=== PATIENT | male | born 1985 | race Caucasian/White ===

== ENCOUNTER 2017-12-20 11:25 | Inpatient (IN) ==
[2017-12-20] MEDS ORDERED: Ondansetron 4 MG/2 ML VIAL IVP ONE (12:02)
[2017-12-20] MEDS ORDERED: *HR* HYDROmorphone (PF) 1 MG/ML SYRINGE IVP ONE ×2 (12:02→16:31)
[2017-12-20] MEDS ORDERED: 0.9 % Sodium Chloride 1,000 ML IVC ONE (12:02)
[2017-12-20 12:10] LABS: Basophils % 0.4 %; Eosinophils % 0.4 %; Hemoglobin 15.5 g/dL (12.9-16.9); Immature Granulocytes % 0.4 % (0-4); Lymphocytes # 0.9 K/mcL (0.6-4.6); Lymphocytes % 10.9 %; Mean Corpuscular Hemoglobin 26.9 pg (28.0-33.3); Mean Corpuscular Volume 81.6 fL (83.0-100.0); Mean Platelet Volume 8.8 fL (9.4-12.4); Monocytes # 0.7 K/mcL (0.0-1.3); Monocytes % 7.6 %; Neutrophils # 6.9 K/mcL (1.6-8.9); Platelet Count 304 K/mcL (140-400); Red Blood Count 5.76 M/mcL (4.19-5.50); Red Cell Distribution Width 13.4 % (11.5-14.5); Segmented Neutrophils % 80.3 %
[2017-12-20 12:29] LABS: Alanine Aminotransferase 37 Units/L (7-52); Albumin 4.9 g/dL (3.5-5.7); Albumin/Globulin Ratio 1.5 (1.1-2.2); Alkaline Phosphatase 73 Units/L (34-104); Aspartate Amino Transferase 23 Units/L (13-39); BUN/Creatinine Ratio 13 (6-26); Bilirubin,Direct 0.1 mg/dL (0.0-0.2); Bilirubin,Indirect 0.7 mg/dL (0.0-1.2); Bilirubin,Total 0.8 mg/dL (0.3-1.0); Blood Urea Nitrogen 11 mg/dL (6-20); Calcium 9.9 mg/dL (8.6-10.3); Carbon Dioxide 29 mEq/L (23-29); Chloride 100 mEq/L (98-107); Globulin 3.2 g/dL (2.4-3.5); Glucose 126 mg/dL (70-105); Lipase 12 Units/L (11-82); Osmolality,Calculated 287 (280-300); Potassium 3.4 mEq/L (3.5-5.1); Sodium 138 mEq/L (136-145); Total Protein 8.1 g/dL (6.4-8.9); eGFR For Non-African Americans > 60 (> 60)
[2017-12-20 12:42] LABS: Bilirubin,Urine Small (Negative); Blood,Urine Negative (Negative); Clarity,Urine Clear (Clear); Color,Urine Dark Yellow (Yellow); Glucose,Urine (UA) Normal (Normal); Ketones,Urine Trace mg/dL (Negative); Leukocyte Esterase,Urine Negative (Negative); Nitrite,Urine Negative (Negative); Protein,Urine 100 mg/dL (Neg-Trace); Specific Gravity,Urine > 1.030 (1.010-1.025); Urobilinogen,Urine Normal (Normal)
[2017-12-20 12:46] LABS: Bacteria,Urine None Seen per hpf (None-Few); Hyaline Casts,Urine Few per lpf (None-Few); RBC,Urine 0-3 per hpf (0-3); Squamous Epithelial Cell,Urine Many per lpf (None-Few)
[2017-12-20] MEDS ORDERED: Isovue-370 500 ML INFUS..BTL PO ONE (14:22)
[2017-12-20] MEDS ORDERED: Lidocaine Viscous Oral Soln 15 ML SOLUTION MM ONE (15:32)
--- NOTE | 2017-12-20 16:26 | Emergency Department Note ---
Disposition Clinical Impression: Incarcerated hernia Disposition: Admitted As Inpatient Condition: Good Abdominal Pain HPI - General Chief Complaint: ED Abdominal Pain Stated Complaint: Abd pain Time Seen by Provider: 12/20/17 11:31 Source: patient Mode of arrival: ambulatory Limitations: no limitations Nursing Notes Reviewed: Yes Vital Signs Reviewed: Yes - History of Present Illness HPI Narrative: Patient presents to the emergency department today for evaluation of abdominal pain and hernia that he was going to have evaluated on by Dr. Rosario. Patient states he has had a hernia for 2 years. It has been out for 2 days causing increasing amounts of pain as well as 8 episodes of vomiting prior to arrival. The patient otherwise looks well. His attempted to be reduced and was unsuccessful. Patient will go on to further evaluation with CT scan imaging and blood work. Pain Scale: 1 - Related Data Home Medications Medication Instructions Recorded Confirmed Levothyroxine Sodium [Levoxyl] 88 mcg PO DAILY 12/20/17 12/20/17 Levothyroxine Sodium [Synthroid] 200 mcg PO DAILY 12/20/17 12/20/17 RX: Carvedilol [Coreg] 25 mg PO BID 12/20/17 12/20/17 RX: amLODIPine [Norvasc] 5 mg PO DAILY 12/20/17 12/20/17 hydroCHLOROthiazide 25 mg PO DAILY 12/20/17 12/20/17 [Hydrochlorothiazide] Allergies Allergy/AdvReac Type Severity Reaction Status Date / Time levofloxacin [From Levaquin] Allergy See Verified 12/20/17 11:36 Comments Penicillins [PCN] Allergy See Verified 12/20/17 11:36 Comments All systems ED: reviewed and negative except as stated. Review of Systems: As Per HPI Constitutional: Denies: fever, chills ENT ED: Denies: ear pain, congestion Cardiovascular: Denies: chest pain, palpitations, dyspnea on exertion Respiratory: Denies: cough, dyspnea, wheezes Gastrointestinal: Reports: abdominal pain, nausea, vomiting. Denies: diarrhea, constipation Genitourinary: Denies: urgency, dysuria Musculoskeletal: Denies: back pain, neck pain Integumentary: Denies: rash, abrasion Neurological: Denies: headache Abdominal Pain PMH - Past Medical History Medical history: Reports: hyperlipidemia, hypertension, thyroid disease, other Male Surgical History: Reports: orthopedic, other, thyroidectomy, Tonsillectomy Psychiatric history: Reports: no psych history - Social History Smoking status: Never smoker Alcohol use: Reports: occasionally Drug use: Reports: none Physical Exam General: Mild distress secondary to pain Head: Normocephalic Atraumatic Eyes: PERRL, EOMI ENT: Airway patent, no stridor Neck: supple, no meningismus Chest: Lungs clear to auscultation bilateral Cardiac: Regular rate and rhythm, no murmurs, rubs or gallops Abdomen: Patient has a ventral hernia that was unable to be reduced at bedside. Ice was applied without reduction. Fascial defects unable to be felt. The patient's underlying abdomen is soft and nontender to palpation without guarding or rebound. Musculoskeletal: Calves symmetric, nontender Skin: No rash, normal skin tone Neuro: Alert and Oriented to person, place, and time; No focal deficit, CN 2-12 symmetric and intact - General Limitations: no limitations General appearance: alert Course - Consultations Consultation #1: Discussed with Dr. Cortez. Requests oral contrast. Dr. Cortez at bedside after CT scan resulted. Patient will be admitted to his service. Vital Signs Temperature 98.0 F 12/20/17 11:34 Pulse Rate 94 12/20/17 11:34 Respiratory Rate 18 12/20/17 11:34 Blood Pressure 116/89 12/20/17 11:34 O2 Sat by Pulse Oximetry 93 12/20/17 11:34 Temperature 98.5 F 12/20/17 23:17 Pulse Rate 69 12/20/17 23:17 Respiratory Rate 18 12/20/17 23:17 Blood Pressure 141/82 12/20/17 23:17 O2 Sat by Pulse Oximetry 92 12/20/17 23:35 Oxygen Delivery Oxygen Delivery Room Air Abdominal Pain - Lab Data Result diagrams: 12/20/17 12:00 12/20/17 12:00 Lab Results 12/20/17 12/20/17 12/20/17 Range/Units 12:00 12:00 12:09 WBC 8.6 (4.3-11.1) K/mcL RBC 5.76 H (4.19-5.50) M/mcL Hgb 15.5 (12.9-16.9) g/dL Hct 47.0 (37.5-50.1) % MCV 81.6 L (83.0-100.0) fL MCH 26.9 L (28.0-33.3) pg MCHC 33.0 (31.6-35.5) g/dL RDW 13.4 (11.5-14.5) % Plt Count 304 (140-400) K/mcL MPV 8.8 L (9.4-12.4) fL Immature Gran % 0.4 (0-4) % Seg Neutrophils % 80.3 % Lymphocytes % 10.9 % Monocytes % 7.6 % Eosinophils % 0.4 % Basophils % 0.4 % Neutrophils # 6.9 (1.6-8.9) K/mcL Lymphocytes # 0.9 (0.6-4.6) K/mcL Monocytes # 0.7 (0.0-1.3) K/mcL Eosinophils # 0.0 (0.0-0.6) K/mcL Basophils # 0.0 (0.0-0.2) K/mcL Sodium 138 (136-145) mEq/L Potassium 3.4 L (3.5-5.1) mEq/L Chloride 100 (98-107) mEq/L Carbon Dioxide 29 (23-29) mEq/L BUN 11 (6-20) mg/dL Creatinine 0.85 (0.70-1.30) mg/dL Est GFR ( Amer) > 60 (> 60) Est GFR (Non-Af Amer) > 60 (> 60) BUN/Creatinine Ratio 13 (6-26) Glucose 126 H (70-105) mg/dL Calculated Osmolality 287 (280-300) Lactic Acid 1.0 (0.5-2.2) mmol/L Calcium 9.9 (8.6-10.3) mg/dL Total Bilirubin 0.8 (0.3-1.0) mg/dL Direct Bilirubin 0.1 (0.0-0.2) mg/dL Indirect Bilirubin 0.7 (0.0-1.2) mg/dL AST 23 (13-39) Units/L ALT 37 (7-52) Units/L Alkaline Phosphatase 73 (34-104) Units/L Serum Total Protein 8.1 (6.4-8.9) g/dL Albumin 4.9 (3.5-5.7) g/dL Globulin 3.2 (2.4-3.5) g/dL Albumin/Globulin Ratio 1.5 (1.1-2.2) Lipase 12 (11-82) Units/L Urine Color (Yellow) Urine Clarity (Clear) Urine pH (5.0-8.0) pH Units Ur Specific [place] (1.010-1.025) Urine Protein (Neg-Trace) mg/dL Urine Glucose (UA) (Normal) mg/dL Urine Ketones (Negative) mg/dL Urine Blood (Negative) Urine Nitrite (Negative) Urine Bilirubin (Negative) Urine Urobilinogen (Normal) mg/dL Ur Leukocyte Esterase (Negative) Urine Microscopic RBC (0-3) per hpf Urine Microscopic WBC (0-3) per hpf Ur Squamous Epith Cells (None-Few) per lpf Urine Bacteria (None-Few) per hpf Hyaline Casts (None-Few) per lpf Ur Culture Indicated? (NO) 12/20/17 Range/Units 12:34 WBC (4.3-11.1) K/mcL RBC (4.19-5.50) M/mcL Hgb (12.9-16.9) g/dL Hct (37.5-50.1) % MCV (83.0-100.0) fL MCH (28.0-33.3) pg MCHC (31.6-35.5) g/dL RDW (11.5-14.5) % Plt Count (140-400) K/mcL MPV (9.4-12.4) fL Immature Gran % (0-4) % Seg Neutrophils % % Lymphocytes % % Monocytes % % Eosinophils % % Basophils % % Neutrophils # (1.6-8.9) K/mcL Lymphocytes # (0.6-4.6) K/mcL Monocytes # (0.0-1.3) K/mcL Eosinophils # (0.0-0.6) K/mcL Basophils # (0.0-0.2) K/mcL Sodium (136-145) mEq/L Potassium (3.5-5.1) mEq/L Chloride (98-107) mEq/L Carbon Dioxide (23-29) mEq/L BUN (6-20) mg/dL Creatinine (0.70-1.30) mg/dL Est GFR ( Amer) (> 60) Est GFR (Non-Af Amer) (> 60) BUN/Creatinine Ratio (6-26) Glucose (70-105) mg/dL Calculated Osmolality (280-300) Lactic Acid (0.5-2.2) mmol/L Calcium (8.6-10.3) mg/dL Total Bilirubin (0.3-1.0) mg/dL Direct Bilirubin (0.0-0.2) mg/dL Indirect Bilirubin (0.0-1.2) mg/dL AST (13-39) Units/L ALT (7-52) Units/L Alkaline Phosphatase (34-104) Units/L Serum Total Protein (6.4-8.9) g/dL Albumin (3.5-5.7) g/dL Globulin (2.4-3.5) g/dL Albumin/Globulin Ratio (1.1-2.2) Lipase (11-82) Units/L Urine Color Dark Yellow (Yellow) Urine Clarity Clear (Clear) Urine pH 6.0 (5.0-8.0) pH Units Ur Specific [place] > 1.030 H (1.010-1.025) Urine Protein 100 H (Neg-Trace) mg/dL Urine Glucose (UA) Normal (Normal) mg/dL Urine Ketones Trace H (Negative) mg/dL Urine Blood Negative (Negative) Urine Nitrite Negative (Negative) Urine Bilirubin Small H (Negative) Urine Urobilinogen Normal (Normal) mg/dL Ur Leukocyte Esterase Negative (Negative) Urine Microscopic RBC 0-3 (0-3) per hpf Urine Microscopic WBC 3-5 H (0-3) per hpf Ur Squamous Epith Cells Many H (None-Few) per lpf Urine Bacteria None Seen (None-Few) per hpf Hyaline Casts Few (None-Few) per lpf Ur Culture Indicated? NO (NO)
--- NOTE | 2017-12-20 17:54 | General Surg History&Physical ---
Date of Encounter: 12/20/17 Time of Encounter: 17:51 Assessment and Plan (1) Incarcerated hernia Current Visit: Yes Status: Acute The assessment and plan as outlined above was discussed with the patient and/or family members who expressed understanding and agreement. All questions were answered. Plan for robotic reduction of incarcerated/strangulated hernia with primary repair and mesh repair. Risks were explained and he agrees to proceed. History of Present Illness HPI: Mr. Alan is a 32 year old male a known hernia. He was scheduled to be seen in the office. However, he deveolped nausea and vomiting that has been present since yesterday. He lifted a washer and dryer last weekend. He feels this is the cause of the hernia. The pain is 7/10 at its worst. No radiating symptoms. Past Med Surg Social Fam HX - Past Medical History Medical history: hyperlipidemia, hypertension, thyroid disease, other Additional medical history: MRSA, asthma as a child. THYROID NODULE. LEFT VENTRICULAR HYPERTROPHY Psychiatric history: no psych history - Past Surgical History Surgical History: no surgical history - Social History Smoking Status: Never smoker Smokeless Tobacco Status: No Alcohol use: occasionally Drug use: none Medications and Allergies Carvedilol [Coreg] 25 mg PO BID 12/20/17 [History] Levothyroxine Sodium [Levoxyl] 88 mcg PO DAILY 12/20/17 [History] Levothyroxine Sodium [Synthroid] 200 mcg PO DAILY 12/20/17 [History] amLODIPine [Norvasc] 5 mg PO DAILY 12/20/17 [History] hydroCHLOROthiazide [Hydrochlorothiazide] 25 mg PO DAILY 12/20/17 [History] Allergy/AdvReac Type Severity Reaction Status Date / Time levofloxacin [From Levaquin] Allergy See Verified 12/20/17 11:36 Comments Penicillins [PCN] Allergy See Verified 12/20/17 11:36 Comments Review of Systems All systems PM: reviewed and no additional remarkable complaints except as stated All systems PM: The remainder of the systems were reviewed and are negative General Surgery Exam Initial Vital Signs Temp Pulse Resp BP Pulse Ox 98.0 F 94 18 116/89 93 12/20/17 11:34 12/20/17 11:34 12/20/17 11:34 12/20/17 11:34 12/20/17 11:34 - General physical appearance well developed, well nourished, moderate distress - Eyes PERRL, normal ocular movement - ENT normal pinna, normal nares, normal mucosa - Neck trachea midline - Respiratory normal respiratory effort - Cardiovascular Cardiovascular exam: Present: RRR - Abdomen Hernia: Present: incarcerated - Integumentary Integumentary general surgery: Present: warm and dry - Neurologic Present: CN 2-12 grossly intact, normal coordination, normal sensation - Musculoskeletal Present: normal gait, normal posture - Psychiatric Psychiatric general surgery: Present: A&Ox3, memory intact Results - Labs 12/20/17 12:00 12/20/17 12:00 Abnormal lab results RBC 5.76 M/mcL (4.19-5.50) H 12/20/17 12:00 MCV 81.6 fL (83.0-100.0) L 12/20/17 12:00 MCH 26.9 pg (28.0-33.3) L 12/20/17 12:00 MPV 8.8 fL (9.4-12.4) L 12/20/17 12:00 Potassium 3.4 mEq/L (3.5-5.1) L 12/20/17 12:00 Glucose 126 mg/dL (70-105) H 12/20/17 12:00 Ur Specific [place] > 1.030 (1.010-1.025) H 12/20/17 12:34 Urine Protein 100 mg/dL (Neg-Trace) H 12/20/17 12:34 Urine Ketones Trace mg/dL (Negative) H 12/20/17 12:34 Urine Bilirubin Small (Negative) H 12/20/17 12:34 Urine Microscopic WBC 3-5 per hpf (0-3) H 12/20/17 12:34 Ur Squamous Epith Cells Many per lpf (None-Few) H 12/20/17 12:34 Diabetes panel 12/20/17 Range/Units 12:00 Sodium 138 (136-145) mEq/L Potassium 3.4 L (3.5-5.1) mEq/L Chloride 100 (98-107) mEq/L Carbon Dioxide 29 (23-29) mEq/L BUN 11 (6-20) mg/dL Creatinine 0.85 (0.70-1.30) mg/dL Glucose 126 H (70-105) mg/dL Calcium 9.9 (8.6-10.3) mg/dL AST 23 (13-39) Units/L ALT 37 (7-52) Units/L Alkaline Phosphatase 73 (34-104) Units/L Albumin 4.9 (3.5-5.7) g/dL Calcium panel 12/20/17 Range/Units 12:00 Calcium 9.9 (8.6-10.3) mg/dL Albumin 4.9 (3.5-5.7) g/dL Pituitary panel 12/20/17 Range/Units 12:00 Sodium 138 (136-145) mEq/L Potassium 3.4 L (3.5-5.1) mEq/L Chloride 100 (98-107) mEq/L Carbon Dioxide 29 (23-29) mEq/L BUN 11 (6-20) mg/dL Creatinine 0.85 (0.70-1.30) mg/dL Glucose 126 H (70-105) mg/dL Calcium 9.9 (8.6-10.3) mg/dL Adrenal panel 12/20/17 Range/Units 12:00 Sodium 138 (136-145) mEq/L Potassium 3.4 L (3.5-5.1) mEq/L Chloride 100 (98-107) mEq/L Carbon Dioxide 29 (23-29) mEq/L BUN 11 (6-20) mg/dL Creatinine 0.85 (0.70-1.30) mg/dL Glucose 126 H (70-105) mg/dL Calcium 9.9 (8.6-10.3) mg/dL Total Bilirubin 0.8 (0.3-1.0) mg/dL AST 23 (13-39) Units/L ALT 37 (7-52) Units/L Alkaline Phosphatase 73 (34-104) Units/L Albumin 4.9 (3.5-5.7) g/dL All other labs normal. - Imaging CT scan - abdomen: image reviewed CT scan - pelvis: image reviewed
[2017-12-20] MEDS ORDERED: Ringers Solution, Lactated 1,000 ML ONE (18:53)
--- NOTE | 2017-12-20 19:19 | Anesthesia Evaluation PreOp ---
Date of Encounter: 12/20/17 Time of Encounter: 19:17 - Past History Planned Operation: Robotic Hernia Repair Cardiac History: HTN Pulmonary History: PRIYANKA Dx (denies but VERY LIKELY) SECURITY SOLUTIONS ENGINEER History: Denies Any Significant HX Other Medical History: Thyroid (Thryoid Ca s/p thyroidectomy) Anesthesia History: No Prior Anesthetic Complications, Past Anesthesia (5th Toe Amputation, Total Thyroidectomy 2015) Alcohol Use: occasionally Drug use: none Medications and Allergies Carvedilol [Coreg] 25 mg PO BID 12/20/17 [History] Levothyroxine Sodium [Levoxyl] 88 mcg PO DAILY 12/20/17 [History] Levothyroxine Sodium [Synthroid] 200 mcg PO DAILY 12/20/17 [History] amLODIPine [Norvasc] 5 mg PO DAILY 12/20/17 [History] hydroCHLOROthiazide [Hydrochlorothiazide] 25 mg PO DAILY 12/20/17 [History] Allergy/AdvReac Type Severity Reaction Status Date / Time levofloxacin [From Levaquin] Allergy See Verified 12/20/17 11:36 Comments Penicillins [PCN] Allergy See Verified 12/20/17 11:36 Comments - Meds/Allergy Pre-op Review Medications Reviewed: Yes Allergies Reviewed: Yes Beta Blockers on Current Med List: Yes (Carvedilol) If Beta Blockers taken, Date/Time (Last Dose taken): 12/20/2017 @ 0700 Anesthesia Results - Labs 12/20/17 12:00 12/20/17 12:00 Laboratory Results Impressions Abdomen/Pelvis CT 12/20/17 14:30 IMPRESSION: 1. Incarcerated midline ventral hernia with associated high-grade small bowel obstruction. No free air or pneumatosis. 2. Small volume ascites. 3. Age-indeterminate superior endplate compression deformity of the L3 vertebral body. Critical results were called by Dr. Serene Salcedo MD to Edvin Hopson Monterroso on 12/20/2017 at 15:00. D/ 12/20/2017 15:03:09 Serene Salcedo MD / bcarter Interpreting Provider: Serene Salcedo MD - Imaging EKG: image reviewed (71bpm - SINUS RHYTHM Electronically Signed On 11-25-15 08:50:47 EDT by Yessica Ko DO) Additional studies: ECHO 2016 Impressions: Technically sub-optimal due to body habitus. LVEF 60%. Moderate concentric left ventricular hypertrophy. Grossly, the right ventricle appears at least mildly dilated with near normal function. Atypical septal motion noted. No evidence of pulmonary hypertension. RVSP was not well obtained and could be underestimated. Valves were not well visualized. Grossly, no obvious significant valvular dysfunction noted. Anesthesia Exam Vital Signs Temp Pulse Resp BP Pulse Ox 12/20/17 17:20 72 16 141/79 96 12/20/17 16:30 81 16 152/94 95 12/20/17 16:04 88 16 133/101 99 12/20/17 15:42 80 16 140/95 95 12/20/17 14:30 80 146/78 98 12/20/17 13:36 80 16 141/89 96 12/20/17 13:35 75 15 137/84 95 12/20/17 12:00 89 16 153/102 94 12/20/17 11:48 98.0 F 93 18 152/90 93 12/20/17 11:34 98.0 F 94 18 116/89 93 Intake and Output 12/20/17 12/20/17 12/20/17 07:59 15:59 23:59 Intake Total 1000 / 1000 Output Total 800 / 800 Balance 1000 / 1000 -800 / -800 Intake: IV Fluids 1000 / 1000 0.9 % Sodium Chloride 1,000 ML 1000 / 1000 @ 999 mls/hr IVC .Q1H1M ONE Rx# :[id number] Output: Urine 300 / 300 Gastric Drainage 500 / 500 Left Nare 500 / 500 Other: Weight 195.045 kg Patient Weight 12/20/17 23:59 Weight 195.045 kg Height: 7' Weight: 430# BMI = 43 NPO (# of Hours): MNoc Pain Scale Used: Numeric (1 - 10) - HEENT Pupil (Motor): Pupils equal, EOMI Mallampati: III Teeth: Normal Oral Opening: Greater than 3 - SECURITY SOLUTIONS ENGINEER LOC: Oriented SECURITY SOLUTIONS ENGINEER Motor: Normal RUE, Normal LUE, Normal RLE, Normal LLE, Normal Face [employer]UR[employer] SOLUT[employer] ENGINEER Sensory: Normal: RUE, LUE, RLE, LLE, Face - Cardiac Rhythm: Regular Murmur: None - Pulmonary Breath Sounds: bilateral Clear Respiratory Effort: Symmetrical Anesthesia Assess/Plan ASA Score: 3 (MO, HTN) Level of consciousness: Cooperative, Oriented Anesthetic Plan: General Monitoring Plan: Standard Monitors Recovery Plan: PACU Anes Supervising Prov Stmt: PT seen/evaluated, R&B discussed, questions answered and consent obtained. Joanne Andrews MD
[2017-12-20] MEDS ORDERED: *HR* Succinylcholine 200 MG/10 ML VIAL IVP ONE (19:36)
[2017-12-20] MEDS ORDERED: Lidocaine -MPF 4% 5 ML AMPUL ONE (19:36)
[2017-12-20] MEDS ORDERED: Lidocaine -MPF 2% 2 ML VIAL ONE (19:36)
[2017-12-20] MEDS ORDERED: *HR* Rocuronium Bromide 50 MG/5 ML VIAL ONE ×2 (19:36→20:32)
[2017-12-20] MEDS ORDERED: Propofol 500 MG/50 ML INFUS..BTL ONE (19:38)
[2017-12-20] MEDS ORDERED: *HR* Midazolam HCl 2 MG/2 ML VIAL ONE (19:39)
[2017-12-20] MEDS ORDERED: *HR* FentaNYL (PF) 100 MCG/2 ML VIAL ONE ×3 (19:39→21:58)
[2017-12-20] MEDS ORDERED: CeFAZolin Syr 3,000MG/30 ML 3,000 MG/30 ML SYRINGE IVPB ONE (19:43)
[2017-12-20] MEDS ORDERED: Acetaminophen IV 1,000 MG/100 ML INFUS..BTL ONE (19:49)
[2017-12-20] MEDS ORDERED: Ondansetron 4 MG/2 ML VIAL ONE (20:32)
[2017-12-20] MEDS ORDERED: Neostigmine Methylsulfate 3 MG/3 ML SYRINGE ONE (20:32)
[2017-12-20] MEDS ORDERED: Dexamethasone 4 MG/ML VIAL ONE ×2 (20:32→22:02)
[2017-12-20] MEDS ORDERED: Ketorolac 30 MG/ML VIAL ONE (20:32)
[2017-12-20] MEDS ORDERED: *HR* HYDROmorphone (PF) 1 MG/ML SYRINGE IVP PRN ×2 (20:45→23:37)
[2017-12-20] MEDS ORDERED: *HR* Labetalol 20 MG/4 ML SYRINGE IVP PRN ×2 (20:45→23:37)
[2017-12-20] MEDS ORDERED: *HR* Promethazine 25 MG/ML VIAL IVP PRN ×2 (20:45→23:37)
[2017-12-20] MEDS ORDERED: *HR* OxyCODONE Immed Rel 5 MG TABLET PO PRN ×2 (20:45→23:37)
[2017-12-20] MEDS ORDERED: *HR* HYDROmorphone 2 MG TABLET PO PRN ×2 (20:45→23:37)
--- NOTE | 2017-12-20 21:53 | Operative Note ---
Date of procedure: 12/20/17 Pre-op diagnosis: Incarcerated strangulated ventral hernia Post-op diagnosis: same Procedure: Robotic reduction of small bowel from ventral hernia with primary herniorrhaphy and 15 cm round mesh hernioplasty Anesthesia: DAYDAY Surgeon: Richardson Cortez Was there an optometrist assistant present: Yes Rail Grinder: Amie Patiño Estimated blood loss (cc): 15 Specimen: 0 Condition: stable Disposition: floor Procedure in Detail: After informed consent, the patient was taken to the operating room in the supine position. After adequate sedation and anesthesia the abdomen was prepped and draped. An incision was made along the left lateral abdominal wall and the posterior axillary line. 12 mm cannulas inserted under direct visualization and the abdomen. Pneumoperitoneum was created. There were 2 additional 8 mm cannulas placed in the left upper quadrant and left lower quadrant. Some place has able to utilize laparoscopic DeBakeys to reduce the omental tissue. There was a portion of small bowel that was incarcerated and strangulated. It was gently reduced from the defect. Once adequate been completely reduced the bowel was checked for viability appeared to have good tissue structure as well as some peristalsis. The remainder the omentum was removed. Hernia sac was dissected free from the ventral hernia. Once of been completely removed from this space was placed in the abdomen. A #1 V-block permanent suture was then used to close the defect in [id number] fashion. A 15 cm round mesh was then inserted into the abdomen and sutured to the abdominal wall with an 0 Ethibond suture 2. Once completed the needles were retrieved. The pneumoperitoneum was evacuated and the 12 mm cannula site was closed with an 0 Vicryl suture. The incisions were injected with half percent Marcaine and the skin was closed with 4-0 Vicryl suture.
[2017-12-20] MEDS ORDERED: *HR* Magnesium Sulfate 1 GM/2 ML VIAL ONE (22:36)
[2017-12-20] MEDS ORDERED: 0.9 % Sodium Chloride w KCl 20 MEQ/1,000 ML MLS IVC SCH (23:37)
--- NOTE | 2017-12-20 23:43 | Anesthesia Evaluation Post Op ---
Date of Encounter: 12/20/17 Time of Encounter: 23:30 - Vital Signs Vital Signs: Vital Signs/O2 Sat/Glucose, Most Current Temp Pulse Resp BP Pulse Ox 12/20/17 23:35 92 12/20/17 23:17 98.5 F 69 18 141/82 92 12/20/17 23:10 98.5 F 66 18 141/82 93 12/20/17 23:00 70 20 148/88 94 12/20/17 22:50 99.0 F 65 18 140/88 93 12/20/17 22:40 61 16 142/87 94 12/20/17 22:30 98.9 F 73 24 151/84 92 - Lungs Lungs: Clear Ascult./Percussion - Airway Airway: Non-obstructed - Cardiovascular Regular Rate - Mental Status Mental Status: Asleep with brisk response to light stimulation - Pain Pain Scale: 4 Pain Scale used: Numeric (1 - 10) - Nausea Vomiting Nausea Vomiting: Not Present - Hydration Hydration: NPO, Has not voided - Discharge PostOp Status: Transfer Patient to floor Anes Supervising Prov Stmt: Pt seen/evaluated, R&B Discussed, questions answered and consent obtained. - MD Darryl
[2017-12-21] MEDS: Ketorolac 15 MG/ML VIAL IVP SCH ×4 (00:10→18:00)
[2017-12-21] MEDS: Ondansetron 4 MG/2 ML VIAL IVP SCH ×2 (00:11→06:07)
[2017-12-21 06:51] LABS: Basophils % 0.1 %; Hematocrit 41.8 % (37.5-50.1); Immature Granulocytes % 0.3 % (0-4); Lymphocytes # 0.6 K/mcL (0.6-4.6); Lymphocytes % 7.4 %; Mean Corpuscular HGB Conc 32.5 g/dL (31.6-35.5); Mean Corpuscular Hemoglobin 27.2 pg (28.0-33.3); Mean Corpuscular Volume 83.6 fL (83.0-100.0); Mean Platelet Volume 8.5 fL (9.4-12.4); Monocytes # 0.8 K/mcL (0.0-1.3); Monocytes % 9.3 %; Neutrophils # 7.2 K/mcL (1.6-8.9); Platelet Count 250 K/mcL (140-400); Red Cell Distribution Width 13.6 % (11.5-14.5); Segmented Neutrophils % 82.9 %
[2017-12-21 06:55] LABS: Hemoglobin 13.6 g/dL (12.9-16.9)
[2017-12-21 07:10] LABS: BUN/Creatinine Ratio 18 (6-26); Blood Urea Nitrogen 17 mg/dL (6-20); Calcium 8.5 mg/dL (8.6-10.3); Carbon Dioxide 29 mEq/L (23-29); Chloride 102 mEq/L (98-107); Glucose 131 mg/dL (70-105); Osmolality,Calculated 291 (280-300); Potassium 3.7 mEq/L (3.5-5.1); Sodium 139 mEq/L (136-145); eGFR For Non-African Americans > 60 (> 60)
[2017-12-21] MEDS ORDERED: OXYCODONE Oral CONC 10 MG/0.5 ML ORAL.SYG SL PRN (07:42)
[2017-12-21] MEDS ORDERED: Ondansetron 4 MG/2 ML VIAL IVP PRN (07:45)
--- NOTE | 2017-12-21 07:46 | General Surgery Progress Note ---
Date of Encounter: 12/21/17 Time of Encounter: 07:40 - Assessment and Plan (1) Incarcerated hernia Current Visit: Yes Status: Acute Date of procedure: 12/20/17 Pre-op diagnosis: Incarcerated strangulated ventral hernia Post-op diagnosis: same Procedure: Robotic reduction of small bowel from ventral hernia with primary herniorrhaphy and 15 cm round mesh hernioplasty POD #1 as above. Pt insists that NG tube be removed; however, after urther discussion, he was agreeable to clamping the NG and trial CLD rather risk the need for reinsertion. His abd exam is otherwise as expected. He does have bowel sounds and reports passing flatus. Update 0830: RN reports patient would like NG removed. He has been drinking water since aprox 0730 and does not want NG clamped any longer. Remove NG per patient request Plan: Continue supportive care and discomfort management while awaiting return of bowel function Continue toradol Add prn oxycodone Per patient request/refusal will remove NG trial clear liquid diet ambulate TID out of bed to chair for all trays, do not consume trays in the bed incentive spirometry, aggressive pulmonary toileting (2) Morbid obesity with BMI of 45.0-49.9, adult Current Visit: Yes Status: Chronic (3) HTN, goal below 130/80 Current Visit: Yes Status: Acute Continue home meds WIll continue to monitor (4) Thyroid nodule Current Visit: Yes Status: Acute Continue synthroid Subjective Patient reports: no new complaints, feels better, pain is less, voiding w/o difficulty, flatus, no bowel movement, afebrile Objective Vital Signs - Last 8 Hours Temp Pulse Resp BP Pulse Ox 12/21/17 05:51 98.3 F 87 14 151/74 90 12/21/17 02:35 81 16 146/81 12/21/17 01:35 97.9 F 83 20 150/84 12/21/17 00:35 97.7 F 79 16 150/87 12/21/17 00:05 97.7 F 80 20 149/84 Intake and Output 12/20/17 12/20/17 12/21/17 15:59 23:59 07:59 Intake Total 1000 / 1000 0 / 0 Output Total 815 / 815 300 / 300 Balance 1000 / 1000 -815 / -815 -300 / -300 Intake: IV Fluids 1000 / 1000 0.9 % Sodium Chloride 1,000 ML 1000 / 1000 @ 999 mls/hr IVC .Q1H1M ONE Rx# :[id number] Oral 0 / 0 Output: Urine 300 / 300 300 / 300 Estimated Blood Loss 15 / 15 Gastric Drainage 500 / 500 Left Nare 500 / 500 Other: Weight 195.045 kg 210.7 kg Blood Glucose* 133 Patient Weight 12/21/17 23:59 Weight 210.7 kg - General physical appearance no distress, other (Insists the NG be removed) - Eyes normal ocular movement - Neck Neck exam: no lymphadectomy - Respiratory normal expansion, normal respiratory effort, clear to auscultation - Cardiovascular Cardiovascular exam: Present: RRR - Abdomen Abdomen: Present: bowel sounds present, soft, tender Hernia: none - Incision Incision: Present: clean and dry, intact - Integumentary no rash, no growths - Neurologic CN 2-12 grossly intact, normal coordination, normal sensation - Musculoskeletal normal posture - Psychiatric oriented to time, oriented to person, oriented to place, speech is normal, memory intact - Labs 12/21/17 06:35 12/21/17 06:35 Diabetes panel 12/20/17 12/21/17 Range/Units 12:00 06:35 Sodium 138 139 (136-145) mEq/L Potassium 3.4 L 3.7 (3.5-5.1) mEq/L Chloride 100 102 (98-107) mEq/L Carbon Dioxide 29 29 (23-29) mEq/L BUN 11 17 (6-20) mg/dL Creatinine 0.85 0.95 (0.70-1.30) mg/dL Glucose 126 H 131 H (70-105) mg/dL Calcium 9.9 8.5 L (8.6-10.3) mg/dL AST 23 (13-39) Units/L ALT 37 (7-52) Units/L Alkaline Phosphatase 73 (34-104) Units/L Albumin 4.9 (3.5-5.7) g/dL Calcium panel 12/20/17 12/21/17 Range/Units 12:00 06:35 Calcium 9.9 8.5 L (8.6-10.3) mg/dL Albumin 4.9 (3.5-5.7) g/dL Pituitary panel 12/20/17 12/21/17 Range/Units 12:00 06:35 Sodium 138 139 (136-145) mEq/L Potassium 3.4 L 3.7 (3.5-5.1) mEq/L Chloride 100 102 (98-107) mEq/L Carbon Dioxide 29 29 (23-29) mEq/L BUN 11 17 (6-20) mg/dL Creatinine 0.85 0.95 (0.70-1.30) mg/dL Glucose 126 H 131 H (70-105) mg/dL Calcium 9.9 8.5 L (8.6-10.3) mg/dL Adrenal panel 12/20/17 12/21/17 Range/Units 12:00 06:35 Sodium 138 139 (136-145) mEq/L Potassium 3.4 L 3.7 (3.5-5.1) mEq/L Chloride 100 102 (98-107) mEq/L Carbon Dioxide 29 29 (23-29) mEq/L BUN 11 17 (6-20) mg/dL Creatinine 0.85 0.95 (0.70-1.30) mg/dL Glucose 126 H 131 H (70-105) mg/dL Calcium 9.9 8.5 L (8.6-10.3) mg/dL Total Bilirubin 0.8 (0.3-1.0) mg/dL AST 23 (13-39) Units/L ALT 37 (7-52) Units/L Alkaline Phosphatase 73 (34-104) Units/L Albumin 4.9 (3.5-5.7) g/dL Consult Discharge Plan - Plan Referrals: Kate Machado MD [Primary Care Provider] -
[2017-12-21] MEDS: Famotidine 20 MG TABLET PO SCH ×2 (08:26→22:32)
[2017-12-21] MEDS: hydroCHLOROthiazide 25 MG TABLET PO SCH (08:26)
[2017-12-21] MEDS: amLODIPine 5 MG TABLET PO SCH (08:26)
[2017-12-21] MEDS: *HR* OxyCODONE/APAP 5/325 TABLET PO PRN ×3 (09:28→22:32)
[2017-12-22] MEDS: Ketorolac 15 MG/ML VIAL IVP SCH ×3 (00:33→12:25)
[2017-12-22 07:24] LABS: Basophils % 0.6 %; Eosinophils % 0.4 %; Hematocrit 38.5 % (37.5-50.1); Hemoglobin 12.4 g/dL (12.9-16.9); Immature Granulocytes % 0.4 % (0-4); Lymphocytes # 0.6 K/mcL (0.6-4.6); Lymphocytes % 11.1 %; Mean Corpuscular HGB Conc 32.2 g/dL (31.6-35.5); Mean Corpuscular Hemoglobin 27.3 pg (28.0-33.3); Mean Corpuscular Volume 84.8 fL (83.0-100.0); Mean Platelet Volume 8.4 fL (9.4-12.4); Monocytes # 0.9 K/mcL (0.0-1.3); Monocytes % 17.3 %; Neutrophils # 3.8 K/mcL (1.6-8.9); Platelet Count 173 K/mcL (140-400); Red Blood Count 4.54 M/mcL (4.19-5.50); Red Cell Distribution Width 13.8 % (11.5-14.5); Segmented Neutrophils % 70.2 %
[2017-12-22 08:02] LABS: BUN/Creatinine Ratio 21 (6-26); Blood Urea Nitrogen 23 mg/dL (6-20); Calcium 8.2 mg/dL (8.6-10.3); Carbon Dioxide 30 mEq/L (23-29); Chloride 98 mEq/L (98-107); Glucose 120 mg/dL (70-105); Osmolality,Calculated 289 (280-300); Potassium 3.3 mEq/L (3.5-5.1); Sodium 137 mEq/L (136-145); eGFR For Non-African Americans > 60 (> 60)
[2017-12-22] MEDS: amLODIPine 5 MG TABLET PO SCH (08:21)
[2017-12-22] MEDS: Famotidine 20 MG TABLET PO SCH (08:21)
[2017-12-22] MEDS: *HR* OxyCODONE/APAP 5/325 TABLET PO PRN ×2 (08:21→12:25)
[2017-12-22] MEDS: hydroCHLOROthiazide 25 MG TABLET PO SCH (08:21)
[2017-12-22] MEDS ORDERED: Simethicone 80 MG TAB.CHEW PO STA (09:12)
--- NOTE | 2017-12-22 09:12 | Discharge Summary ---
Date of Encounter: 12/22/17 Time of Encounter: 11:27 - Discharge Diagnosis (1) Incarcerated hernia Priority: Primary Status: Acute (2) Morbid obesity with BMI of 45.0-49.9, adult Priority: Secondary Status: Chronic (3) HTN, goal below 130/80 Priority: Secondary Status: Acute (4) Thyroid nodule Priority: Secondary Status: Acute General Surgery Exam Initial Vital Signs Temp Pulse Resp BP Pulse Ox 98.0 F 94 18 116/89 93 12/20/17 11:34 12/20/17 11:34 12/20/17 11:34 12/20/17 11:34 12/20/17 11:34 Vital Signs Temp Pulse Resp BP Pulse Ox 12/22/17 07:52 98.2 F 85 21 134/87 92 12/22/17 07:39 97 12/22/17 04:47 98.6 F 85 14 114/74 93 12/22/17 00:22 99.5 F 84 12 135/78 91 12/21/17 19:34 99.1 F 87 14 114/73 91 12/21/17 16:47 93 12/21/17 16:42 88 12/21/17 16:05 93 12/21/17 16:03 89 12/21/17 15:50 98.5 F 86 24 111/63 89 12/21/17 11:32 99.2 F 91 21 139/73 90 Intake and Output 12/21/17 12/22/17 12/22/17 23:59 07:59 15:59 Intake Total 120 / 120 505 / 505 Output Total 150 / 150 350 / 350 Balance -30 / -30 -350 / -350 505 / 505 Intake: IV Fluids 25 / 25 Potassium Chloride 10 mEq/100mL 25 / 25 10 meq In 100 ml @ 100 mls/hr IVPB Q1H ROSITA Rx#:[id number] Oral 120 / 120 480 / 480 Output: Urine 150 / 150 350 / 350 Other: Meal Dinner Breakfast Percent of Meal Consumed 50% 25% # Bowel Movements 1 Weight 211.5 kg Patient Weight 12/22/17 23:59 Weight 211.5 kg VITAL SIGNS: Reviewed. See [facility] GENERAL: In no apparent distress. HEENT: Normocephalic, atraumatic, pupils are equal and reactive, extraocular motions intact, oropharynx is pink and moist, there is no neck adenopathy or JVD noted. CHEST/RESPIRATORY: The thorax is free from signs of trauma. Lung sounds: clear to auscultation, normal respiratory effort CARDIAC: Regular rate and rhythm. Normal S1 and S2, without murmurs, gallops, or rubs. VASCULAR: No Edema. 2+ peripheral pulses. ABDOMEN: soft, expected postoperative tenderness, active bowel sounds INCISION: Surgical incision is clean, dry, and intact. There are no signs of cellulitis or infection noted. MUSCULOSKELETAL: Good range of motion of all major joints. Extremities without clubbing, cyanosis or edema. NEUROLOGIC EXAM: Alert and oriented x 3. Speech normal. Follows commands. PSYCHIATRIC: Mood normal. SKIN: No rash or lesions. - Hospital Course Hospital course: Mr. Alan is a 32 year old male who presented on 12/20/2017 with complaints of abdominal pain. He was taken to the operating room where he underwent a robotic reduction of small bowel from ventral hernia with primary herniorrhaphy and a 15 cm around Symbotex Mesh hernia plastique for incarcerated strangulated ventral hernia. His postoperative course was complicated by pain control. An NG was left in place for 24 hours postoperatively. He is ambulating and voiding without difficulty, tolerating a diet without nausea or vomiting, afebrile, and vital signs are stable. We will begin discharge planning to home with a follow- up in the office in approximately 2 weeks. 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 - Time Spent with Patient Total time spent providing and/or coordinating discharge services: - Discharge Medications Prescriptions: Ondansetron ODT [Zofran ODT] 4 mg SL Q4HR PRN #15 tab.rapdis PRN Reason: Postsurgical nausea OxyCODONE/APAP 5/325 [Percocet 5/325 MG] 1 each PO Q6HR PRN 7 Days #28 tablet PRN Reason: Pain Docusate Sodium [Colace] 100 mg PO BID PRN #30 capsule PRN Reason: Constipation Ibuprofen 800 mg PO Q8H PRN #42 tablet PRN Reason: Mild Pain Home Medications: Carvedilol [Coreg] 25 mg PO BID 12/20/17 [History] Levothyroxine Sodium [Levoxyl] 88 mcg PO DAILY 12/20/17 [History] Levothyroxine Sodium [Synthroid] 200 mcg PO DAILY 12/20/17 [History] amLODIPine [Norvasc] 5 mg PO DAILY 12/20/17 [History] hydroCHLOROthiazide [Hydrochlorothiazide] 25 mg PO DAILY 12/20/17 [History] Docusate Sodium [Colace] 100 mg PO BID PRN #30 capsule 12/22/17 [Rx] Ibuprofen 800 mg PO Q8H PRN #42 tablet 12/22/17 [Rx] Ondansetron ODT [Zofran ODT] 4 mg SL Q4HR PRN #15 tab.rapdis 12/22/17 [Rx] OxyCODONE/APAP 5/325 [Percocet 5/325 MG] 1 each PO Q6HR PRN 7 Days #28 tablet 12/22/17 [Rx] Allergies/Adverse Reactions: Allergy/AdvReac Type Severity Reaction Status Date / Time levofloxacin [From Levaquin] Allergy See Verified 12/20/17 11:36 Comments Penicillins [PCN] Allergy See Verified 12/20/17 11:36 Comments Date of admission: 12/21/17 11:38 Primary care physician: Kate Machado Discharging clinician: Prerna Kunz Anticipated date of discharge: 12/22/17 Labs on day of discharge: Labs from last 24 hours 12/22/17 12/22/17 12/21/17 07:15 07:15 06:00 WBC 5.4 RBC 4.54 Hgb 12.4 L Hct 38.5 MCV 84.8 MCH 27.3 L MCHC 32.2 RDW 13.8 Plt Count 173 MPV 8.4 L Immature Gran % 0.4 Seg Neutrophils % 70.2 Lymphocytes % 11.1 Monocytes % 17.3 Eosinophils % 0.4 Basophils % 0.6 Neutrophils # 3.8 Lymphocytes # 0.6 Monocytes # 0.9 Eosinophils # 0.0 Basophils # 0.0 Sodium 137 Potassium 3.3 L Chloride 98 Carbon Dioxide 30 H BUN 23 H Creatinine 1.11 Est GFR ( Amer) > 60 Est GFR (Non-Af Amer) > 60 BUN/Creatinine Ratio 21 Glucose 120 H POC Glucose 133 H Calculated Osmolality 289 Calcium 8.2 L - Impressions ITS Impressions Abdomen/Pelvis CT 12/20/17 14:30 IMPRESSION: 1. Incarcerated midline ventral hernia with associated high-grade small bowel obstruction. No free air or pneumatosis. 2. Small volume ascites. 3. Age-indeterminate superior endplate compression deformity of the L3 vertebral body. Critical results were called by Dr. Serene Salcedo MD to Edvin Monterroso on 12/20/2017 at 15:00. D/ / 12/20/2017 15:03:09 Serene Salcedo MD / [email or web address] Interpreting Provider: Serene Salcedo MD - Patient Status Disposition: Home, Self-Care Condition: Good Overall status at discharge: patient is progressing back to baseline - Discharge Instructions Instructions: Laparoscopic Herniorrhaphy (DC) Follow Up With: Richardson Cortez DO [Partnered Physician] - 01/05/18 10:50 am Kate Machado MD [Primary Care Provider] - Forms: Work/School Release - Diet and Activity Activity: increase activity as tolerated Diet: advance to your usual diet
[2017-12-22 11:45] VITALS: BP 110/73
== END 2017-12-22 13:10 | disposition home or self-care (01) | DRG 354 ==
LOC: EMEROOARM 11:25 → 3ANU 11:25
PROVIDERS: ADMIT Internal Medicine; ATTEND Surgery